=== PATIENT | male | born 1995 | race Caucasian/White ===

== ENCOUNTER 2016-05-08 01:29 | Emergency (ER) | payer SELFPAY ==
--- NOTE | 2016-05-11 22:52 | ER ---
ADMIT: 05/08/2016 RM/LOC: ER [facility] MR#: [id number] [facility] [id number] RITA PRIEST [address] [place] [id number] Emergency Room Report SEX: M AGE: 20 : 1995 DATE: 05/08/2016 The patient is a 20-year-old male, comes in with epigastric abdominal pain described as severe associated with vomiting, diarrhea for the past 14 days. Denies any prior history of hepatitis. Exam remarkable for nontoxic, acutely uncomfortable afebrile male. Normal CBC, CMP, lactic, CRP. Slightly elevated AST, ALT. H. pylori negative. Acute hepatitis panel negative. Advised Zofran 4 mg t.i.d. p.r.n. #30. Follow up with Dr. Ruggiero as needed. Donal Benjamin MD/ marcus JOB #: [id number] CC: Donal Benjamin MD, Attending Physician Heriberto Ruggiero MD, Family Physician
== END 2016-05-08 01:30 | disposition home or self-care (01) ==
LOC: ER 01:29
DX: R10.13 Epigastric pain (principal); R19.7 Diarrhea, unspecified; Z88.1 Allergy status to other antibiotic agents